=== PATIENT | male | born 1990 | race Caucasian/White ===

== ENCOUNTER → 2018-04-19 | Outpatient (CLI) | payer BC ==
--- NOTE | 2018-04-19 08:07 | US ---
EXAMINATION TYPE: US abdomen complete DATE OF EXAM: 04/19/2018 COMPARISON: NONE CLINICAL HISTORY: R10.11 rt upper quad pain. EXAM MEASUREMENTS: Liver Length: 15.5 cm Gallbladder Wall: 0.1 cm CHD: 0.2 cm Spleen: 11.8 cm Right Kidney: 9.8 x 4.7 x 4.7 cm Left Kidney: 11.4 x 5.9 x 5.8 cm Pancreas: Body and tail obscured by overlying bowel gas Liver: wnl Gallbladder: wnl Evidence for sonographic Joseph's sign: neg CBD: Obscured by overlying bowel gas CHD: wnl Spleen: wnl Right Kidney: wnl Left Kidney: wnl Upper IVC: wnl Abd Aorta: wnl The liver is homogenous. The intrahepatic portion of the IVC and proximal abdominal aorta are within normal limits. There is no evidence of cholelithiasis. Common bile duct is unremarkable. The visu alized portions of the pancreas are homogenous. The spleen is unremarkable. Kidneys are symmetric a nd free of hydronephrosis. No renal lesions are seen. IMPRESSION: 1. No distinct abnormality appreciated.
== END | disposition home or self-care (01) ==
LOC: RADUSWWP 06:47
PROVIDERS: ATTEND Family Medicine
DX: R10.11 Right upper quadrant pain (principal)
CPT/HCPCS: 76700